=== PATIENT | female | born 1980 | race Caucasian/White ===

== ENCOUNTER 2017-08-10 16:37 | Emergency (ER) | payer MEDICAID ==
[~2017-08-10] VITALS: Ht 152.4 cm; Wt 68.2 kg
[2017-08-10 19:57] VITALS: BP 136/72
== END 2017-08-10 22:51 | disposition home or self-care (01) ==
LOC: EMS 16:39
DX: S80.01XA Contusion of right knee, initial encounter (principal); S80.02XA Contusion of left knee, initial encounter; W01.0XXA Fall on same level from slipping, tripping and stumbling without subsequent striking against object, initial encounter; Y93.01 Activity, walking, marching and hiking; Y92.89 Other specified places as the place of occurrence of the external cause; Y99.8 Other external cause status
CPT/HCPCS: 81025; 99284

== ENCOUNTER 2021-02-15 18:24 | Emergency (ER) | payer MEDICAID, OTHER ==
[~2021-02-15] VITALS: Ht 152.4 cm; Wt 79.5 kg
[2021-02-15] MEDS ORDERED: HYDROCODONE/ACETAMINOPHEN 5-325 MG TABLET PO ONE (19:30)
[2021-02-15 21:01] VITALS: BP 114/70
== END 2021-02-15 21:02 | disposition home or self-care (01) ==
LOC: EMS 18:24
DX: S70.01XA Contusion of right hip, initial encounter (principal); S70.02XA Contusion of left hip, initial encounter; M25.561 Pain in right knee; M25.562 Pain in left knee; V49.9XXA Car occupant (driver) (passenger) injured in unspecified traffic accident, initial encounter; Y93.89 Activity, other specified; Y92.89 Other specified places as the place of occurrence of the external cause; Y99.8 Other external cause status
CPT/HCPCS: 73521; 99284; 73562-TC; 73590-TC; Z7502; Z7610